=== PATIENT | female | born 1995 | race Caucasian/White ===

== ENCOUNTER 2021-08-17 02:01 | Emergency (ER) | payer OTHER ==
[2021-08-17 03:22] LABS: ESTIMATED GFR 90 mL/min (>60)
[2021-08-17] MEDS ORDERED: Acetaminophen 325 MG Tab PO ONE (04:01)
== END 2021-08-17 04:22 | disposition home or self-care (01) ==
LOC: JD.ED 02:01
DX: O20.0 Threatened abortion (principal); Z3A.01 Less than 8 weeks gestation of pregnancy
CPT/HCPCS: 36415; 80053; 81001; 84702; 85025; 86850; 86900; 86901; 99284; A9270